=== PATIENT | female | born 1935 | race Caucasian/White ===

== ENCOUNTER → 2016-05-20 15:50 | Outpatient (CLI) | payer MEDICARE ==
[~2016-05-20 15:50] MED LIST: CELEXA20 MG PO; CRESTOR5 MG PO; ELIQUIS2.5 MG PO; KLONOPIN1 MG PO; NEXIUM40 MG PO; OXYCODONE HCL5 MG PO; OXYTROL PATCH1 PATCH TRANSDERM; PAMELOR 25 MG C25 MG PO; PREDNISONE2.5 MG PO; PROPRANOLOL HCL60 M1 PO; SENOKOT-S TABLE1 TAB PO
== END | disposition home or self-care (01) ==
LOC: D.LABREF 15:50
DX: B82.9 Intestinal parasitism, unspecified (principal)

== ENCOUNTER 2017-03-04 17:48 | Inpatient (IN) | payer MEDICARE ==
[~2017-03-04] VITALS: Ht 165.1 cm; Wt 80.5 kg
--- NOTE | ~2017-03-04 | EC ---
PATIENT:PHILLIP AVILEZ DATE OF SERVICE: 03/05/17 SEX: F MEDICAL RECORD: [id number] DATE OF : 39 LOCATION:[facility] AGE OF PATIENT: 81 ADMISSION DATE: 03/05/17 REFERRING PHYSICIAN: INTERPRETING PHYSICIAN: MARTHA STEWART MD ECHOCARDIOGRAM REPORT ECHO CHARGES 4 ECHO COMPLETE CLINICAL DIAGNOSIS: CHEST PAIN ECHOCARDIOGRAPHIC MEASUREMENTS (adult normal given) AC root (d.<3.7cm) 3.8 cm LV Septum d (<1.2 cm> 1.3 cm Valve Excursion 1.7 cm LV Septum (systole) 1.5 cm Left Atria (s.<4.0cm> 3.5 cm LVPW d(<1.2cm) 0.9 cm RV (d.<2.3cm) 3.5 cm LVPW (sytole) 1.4 cm LV diastole(<5.6CM) 4.0 cm MV E-F(>70mm/sec) cm LV systole 2.7 cm LVOT Diameter 1.8 cm MV exc.(>10mm) 1.5 cm Est.ejection fraction (50-75%) % Pericardial Effusion Y DOPPLER: LVIT cm/sec A 92.0 cm/sec E 69.0 cm/sec LA cm/sec RVSP 63 mmHg LVOT 147 cm/sec AOP1/2T m/s Asc. Ao 183 cm/sec RVOT 96 cm/sec RA cm/sec PA 126 cm/sec AV Gradient Peak 13.37mmHg AV Mean 7.62 mmHg AV Area 1.8 cm MV Gradient Peak 4.42 mmHg MV Mean 1.83 mmHg MV Area cm COMMENTS: Slaughterer Religious Ritual: Shiloh RIVAS Delivery Aide: 4 Dr. Stewart TAPE# PACS DATE OF SERVICE: 03/05/2017 PROCEDURE: Transthoracic echocardiogram. FINDINGS: 1. The left ventricle was hyperdynamic and ejection fraction 65% to 70%. Mitral valve appears to be grossly normal with no significant mitral regurgitation. 2. The left atrium is normal size, normal function. 3. The right ventricle is mildly dilated and there is right ventricular ECHOCARDIOGRAM REPORT [id number] PHILLIP AVILEZ hypertrophy with normal function. The pericardium is normal. There is no significant pulmonic valve regurgitation. 4. The tricuspid valve has at least moderate tricuspid regurgitation with an RVSP that is moderately elevated at 60 mmHg. 5. The in-flow characteristics across the mitral valve demonstrate diastolic dysfunction or possibly elevated left ventricular end-diastolic pressures. 6. The interatrial septum is grossly intact. 7. The right atrium is normal size, normal function. CONCLUSION: The patient has evidence of hypertensive heart disease, diastolic dysfunction, pulmonary hypertension. TRANSINT:[id number] Voice Confirmation ID: [id number] DOCUMENT ID: [id number] 03/13/2017 Edited to correct date of service, dm. MARTHA STEWART MD at 1522 CC: [id number] DICTATION DATE: 03/06/17 0839 MEDIA/INSTRUCTIONAL DESIGNER: 03/06/17 1145 DIS IN 03/08/[address] [facility] [address] [place] [address]
[2017-03-04 20:26] LABS: BASOPHILS 0 % (0-2); EOSINOPHILS 1.1 % (0-7); HEMATOCRIT 45.2 % (36.0-48.0); HEMOGLOBIN 15.1 g/dL (12-16); IMMATURE GRANULOCYTES 0.1 % (0-5); LYMPHOCYTES 5.3 % (15-50); MCH 32.4 pg (26.0-34.0); MCHC 33.4 g/dL (31.0-37.0); MEAN PLATELET VOLUME 10.3 fL (7.4-10.4); MONOCYTES 4.1 % (2-11); NEUTROPHILS 89.4 % (40-80); PLATELET COUNT 188 10x3/uL (130-400); RBC 4.66 10x6/uL (4.00-5.40); RDW 14.3 % (11.5-14.5); WBC 7.4 10x3/uL (4.8-10.8)
[2017-03-04 20:30] LABS: ALBUMIN 3.6 g/dL (3.4-5.0); ALKALINE PHOSPHATASE 158 U/L (46-116); ALT (SGPT) 140 U/L (10-68); CALC OSMOLALITY 279 mosm/kg (275-300); CALCIUM 9.1 mg/dL (8.5-10.1); CARBON DIOXIDE 28.2 mmol/L (21.0-32.0); CHLORIDE - SERUM 102 mmol/L (98-107); CREATININE - SERUM 0.8 mg/dL (0.6-1.3); GLUCOSE 117 mg/dL (74-106); POTASSIUM - SERUM 4.4 mmol/L (3.5-5.1); PROTEIN - SERUM 6.9 g/dL (6.4-8.2); SODIUM 139 mmol/L (136-145); UREA NITROGEN 14 mg/dL (7-18); eGFR NON AFRICAN AMERICAN 73 mL/min (90-120)
[2017-03-04 20:36] LABS: AMYLASE - SERUM 42 U/L (25-115); LIPASE 138 U/L (73-393); TROPONIN-I < 0.017 ng/mL (0.000-0.060)
[2017-03-04 22:51] LABS: APPEARANCE CLEAR (CLEAR); BILIRUBIN NEGATIVE (NEGATIVE); COLOR YELLOW (YELLOW); GLUCOSE NEGATIVE (NEGATIVE); KETONE MODERATE mg/dL (NEGATIVE); NITRITE NEGATIVE (NEGATIVE); PROTEIN NEGATIVE (NEGATIVE); SPECIFIC GRAVITY 1.025 (1.005-1.020); UROBILINOGEN NORMAL (NORMAL)
[2017-03-05 02:47] VITALS: BP 131/75; BMI 30.3
[2017-03-05 04:00] VITALS: BP 106/68
[2017-03-05] MEDS ORDERED: BILTRICIDE600 MG PO (05:44)
[2017-03-05] MEDS ORDERED: PREDNISONE5 MG PO (05:45)
[2017-03-05] MEDS ORDERED: NEXIUM40 MG PO (05:45)
[2017-03-05 08:05] VITALS: BP 122/73
[2017-03-05 10:53] LABS: HEMATOCRIT 37.6 % (36.0-48.0); HEMOGLOBIN 12.7 g/dL (12-16); LYMPHOCYTES 14.9 % (15-50); MCH 31.8 pg (26.0-34.0); MCHC 33.8 g/dL (31.0-37.0); MEAN PLATELET VOLUME 9.7 fL (7.4-10.4); NEUTROPHILS 75.4 % (40-80); RBC 3.99 10x6/uL (4.00-5.40); RDW 14.3 % (11.5-14.5)
[2017-03-05 11:02] LABS: MCV 94.2 fL (80.0-100.0); PLATELET COUNT 149 10x3/uL (130-400)
[2017-03-05 11:16] LABS: ALBUMIN 2.8 g/dL (3.4-5.0); ALKALINE PHOSPHATASE 171 U/L (46-116); BILIRUBIN - TOTAL 0.43 mg/dL (0.2-1.3); CALCIUM 8.4 mg/dL (8.5-10.1); CARBON DIOXIDE 27.9 mmol/L (21.0-32.0); CHLORIDE - SERUM 102 mmol/L (98-107); CREATININE - SERUM 0.7 mg/dL (0.6-1.3); GLUCOSE 113 mg/dL (74-106); POTASSIUM - SERUM 3.8 mmol/L (3.5-5.1); PROTEIN - SERUM 5.6 g/dL (6.4-8.2); SODIUM 135 mmol/L (136-145); eGFR NON AFRICAN AMERICAN 85 mL/min (90-120)
[2017-03-05 11:34] LABS: ALT (SGPT) 227 U/L (10-68); CALC OSMOLALITY 269 mosm/kg (275-300); UREA NITROGEN 10 mg/dL (7-18)
[2017-03-05 12:28] VITALS: BMI 30.2
[2017-03-05 12:33] VITALS: BP 100/60
[2017-03-05 13:45] VITALS: Ht 165.1 cm; Wt 80.5 kg
[2017-03-05 15:59] VITALS: BP 115/66
[2017-03-05 20:00] VITALS: BP 123/77
[2017-03-06] VITALS: BP 94/56
[2017-03-06 04:00] VITALS: BP 98/62
[2017-03-06 05:10] LABS: BASOPHILS 0 % (0-2); EOSINOPHILS 1.3 % (0-7); HEMATOCRIT 38.8 % (36.0-48.0); HEMOGLOBIN 12.3 g/dL (12-16); IMMATURE GRANULOCYTES 0.2 % (0-5); LYMPHOCYTES 12.9 % (15-50); MCHC 31.7 g/dL (31.0-37.0); MEAN PLATELET VOLUME 10.5 fL (7.4-10.4); MONOCYTES 10.2 % (2-11); NEUTROPHILS 75.4 % (40-80); PLATELET COUNT 142 10x3/uL (130-400); RBC 3.97 10x6/uL (4.00-5.40); RDW 14.5 % (11.5-14.5)
[2017-03-06 05:16] LABS: MCV 97.7 fL (80.0-100.0); WBC 5.5 10x3/uL (4.8-10.8)
[2017-03-06 05:31] LABS: ALBUMIN 2.9 g/dL (3.4-5.0); ALKALINE PHOSPHATASE 162 U/L (46-116); CALC OSMOLALITY 278 mosm/kg (275-300); CALCIUM 8.4 mg/dL (8.5-10.1); CARBON DIOXIDE 27.6 mmol/L (21.0-32.0); CHLORIDE - SERUM 106 mmol/L (98-107); CREATININE - SERUM 0.6 mg/dL (0.6-1.3); GLUCOSE 103 mg/dL (74-106); POTASSIUM - SERUM 3.6 mmol/L (3.5-5.1); PROTEIN - SERUM 5.8 g/dL (6.4-8.2); SODIUM 141 mmol/L (136-145); UREA NITROGEN 8 mg/dL (7-18); eGFR NON AFRICAN AMERICAN > 90 mL/min (90-120)
[2017-03-06 05:35] LABS: ALT (SGPT) 159 U/L (10-68)
[2017-03-06 07:30] LABS: HEPATITIS C ANTIBODY <0.1 (0.0-0.9)
[2017-03-06 07:55] VITALS: BP 106/65
[2017-03-06 10:20] LABS: ANA REFLEX - DIRECT Negative (Negative)
[2017-03-06 12:13] VITALS: BP 111/70
[2017-03-06 16:30] VITALS: BP 132/72
[2017-03-06 20:00] VITALS: BP 106/66
[2017-03-07] VITALS: BP 102/60
[2017-03-07 04:00] VITALS: BP 112/69
[2017-03-07 04:56] LABS: BASOPHILS 0 % (0-2); EOSINOPHILS 0.6 % (0-7); HEMATOCRIT 40.1 % (36.0-48.0); HEMOGLOBIN 12.9 g/dL (12-16); IMMATURE GRANULOCYTES 0.6 % (0-5); LYMPHOCYTES 15.4 % (15-50); MCH 31.3 pg (26.0-34.0); MCHC 32.2 g/dL (31.0-37.0); MCV 97.3 fL (80.0-100.0); MEAN PLATELET VOLUME 10.1 fL (7.4-10.4); MONOCYTES 8.3 % (2-11); NEUTROPHILS 75.1 % (40-80); RBC 4.12 10x6/uL (4.00-5.40); RDW 14.5 % (11.5-14.5); WBC 5.1 10x3/uL (4.8-10.8)
[2017-03-07 05:02] LABS: PLATELET COUNT 175 10x3/uL (130-400)
[2017-03-07 05:18] LABS: ALKALINE PHOSPHATASE 150 U/L (46-116); ALT (SGPT) 122 U/L (10-68); BILIRUBIN - TOTAL 0.35 mg/dL (0.2-1.3); CALC OSMOLALITY 271 mosm/kg (275-300); CALCIUM 8.9 mg/dL (8.5-10.1); CARBON DIOXIDE 24.5 mmol/L (21.0-32.0); CHLORIDE - SERUM 100 mmol/L (98-107); CREATININE - SERUM 0.7 mg/dL (0.6-1.3); GLUCOSE 103 mg/dL (74-106); POTASSIUM - SERUM 3.5 mmol/L (3.5-5.1); PROTEIN - SERUM 6.3 g/dL (6.4-8.2); SODIUM 137 mmol/L (136-145); UREA NITROGEN 7 mg/dL (7-18); eGFR NON AFRICAN AMERICAN 85 mL/min (90-120)
[2017-03-07 09:56] VITALS: BP 105/64
[2017-03-07 12:38] VITALS: BP 114/69
[2017-03-07 16:45] VITALS: BP 168/64
[2017-03-07 20:00] VITALS: BP 144/84
[2017-03-08] VITALS: BP 115/65
[2017-03-08 04:00] VITALS: BP 121/62
[2017-03-08 06:13] LABS: BASOPHILS 0 % (0-2); EOSINOPHILS 2.3 % (0-7); HEMATOCRIT 34.2 % (36.0-48.0); IMMATURE GRANULOCYTES 0.5 % (0-5); LYMPHOCYTES 20.1 % (15-50); MCH 30.9 pg (26.0-34.0); MCHC 32.2 g/dL (31.0-37.0); MCV 96.1 fL (80.0-100.0); MEAN PLATELET VOLUME 10.5 fL (7.4-10.4); MONOCYTES 13.4 % (2-11); NEUTROPHILS 63.7 % (40-80); PLATELET COUNT 157 10x3/uL (130-400); RBC 3.56 10x6/uL (4.00-5.40); RDW 14.6 % (11.5-14.5); WBC 4.3 10x3/uL (4.8-10.8)
[2017-03-08 06:47] LABS: ALBUMIN 2.6 g/dL (3.4-5.0); ALKALINE PHOSPHATASE 115 U/L (46-116); BILIRUBIN - TOTAL 0.35 mg/dL (0.2-1.3); CALC OSMOLALITY 275 mosm/kg (275-300); CALCIUM 8.4 mg/dL (8.5-10.1); CARBON DIOXIDE 24.3 mmol/L (21.0-32.0); CHLORIDE - SERUM 104 mmol/L (98-107); GLUCOSE 96 mg/dL (74-106); POTASSIUM - SERUM 3.3 mmol/L (3.5-5.1); PROTEIN - SERUM 5.4 g/dL (6.4-8.2); SODIUM 139 mmol/L (136-145); UREA NITROGEN 6 mg/dL (7-18); eGFR NON AFRICAN AMERICAN > 90 mL/min (90-120)
[2017-03-08 06:49] LABS: ALT (SGPT) 76 U/L (10-68); CREATININE - SERUM 0.5 mg/dL (0.6-1.3)
[2017-03-08 08:44] VITALS: BP 118/69
[2017-03-08 10:08] LABS: MITOCHONDRIAL ANTIBODY 3.9 Units (0.0-20.0)
== END 2017-03-08 13:50 | disposition home or self-care (01) | DRG 866 ==
LOC: D.ER 17:48 → OBSVTIME 22:13 → D.MS 22:13
PROVIDERS: Emergency Medicine; Internal Medicine Gastroenterology; Physician Assistant Medical
DX: B34.9 Viral infection, unspecified (principal); R79.89 Other specified abnormal findings of blood chemistry; R51 Headache; E86.0 Dehydration; I10 Essential (primary) hypertension; E78.5 Hyperlipidemia, unspecified; I20.9 Angina pectoris, unspecified